=== PATIENT | female | born 1955 | race Caucasian/White ===

== ENCOUNTER → 2017-11-11 | Outpatient (CLI) | payer SELFPAY | LOC: LAB EV 13:01 | DX: N39.0 Urinary tract infection, site not specified (principal) | CPT/HCPCS: 87086 ==

== ENCOUNTER → 2018-06-12 | Outpatient (CLI) | payer OTHER ==
[2018-06-14 15:09] LABS: HPV 16 Negative (Negative); HPV 18 Negative (Negative); HPV OTHER HR TYPES Negative (Negative)
[2018-06-18 07:01] LABS: Performing Lab LABCORP
[2018-06-18 07:24] LABS: Result See Separate Report
== END ==
LOC: LAB SHORT 10:00 → LAB 10:00
PROVIDERS: Physician Assistant
DX: Z01.419 Encounter for gynecological examination (general) (routine) without abnormal findings (principal); Z01.411 Encounter for gynecological examination (general) (routine) with abnormal findings; Z85.820 Personal history of malignant melanoma of skin
CPT/HCPCS: 87624; 88112; G0145

== ENCOUNTER → 2023-02-21 | Outpatient (CLI) | payer MEDICARE | END | disposition home or self-care (01) | LOC: LAB SHORT 10:10 → LAB 10:10 | DX: N39.0 Urinary tract infection, site not specified (principal) | CPT/HCPCS: 87077; 87086; 87186 ==

== ENCOUNTER → 2024-03-29 | Outpatient (CLI) | payer MEDICARE | LOC: LAB 11:16 → LAB SHORT 11:16 | DX: N39.0 Urinary tract infection, site not specified (principal) | CPT/HCPCS: 87086 ==